=== PATIENT | female | born 1950 | race Caucasian/White ===

== ENCOUNTER 2020-07-30 13:37 | Observation (INO) ==
[2020-07-30] MEDS ORDERED: Aspirin 81 MG TAB.CHEW PO ONE (13:56)
[2020-07-30] MEDS: Nitroglycerin 0.4 MG TAB.SUBL SL PRN ×3 (14:30→14:40)
[2020-07-30 14:49] LABS: Basophils # 0.1 K/mcL (0.0-0.2); Basophils % 0.7 %; Hematocrit 41.5 % (35.3-44.9); Hemoglobin 13.8 g/dL (11.5-15.4); Immature Granulocytes % 0.2 % (0-4); Lymphocytes # 1.7 K/mcL (0.6-4.6); Lymphocytes % 18.6 %; Mean Corpuscular HGB Conc 33.3 g/dL (31.6-35.5); Mean Corpuscular Hemoglobin 29.9 pg (28.0-33.3); Mean Corpuscular Volume 89.8 fL (83.0-100.0); Monocytes # 0.7 K/mcL (0.0-1.3); Monocytes % 7.5 %; Neutrophils # 6.8 K/mcL (1.6-8.9); Platelet Count 272 K/mcL (140-400); Red Blood Count 4.62 M/mcL (3.82-4.97); Red Cell Distribution Width 13.9 % (11.5-14.5); White Blood Count 9.3 K/mcL (4.3-11.1)
[2020-07-30] MEDS ORDERED: Isovue-370 500 ML BOTTLE IVP ONE (15:11)
[2020-07-30 15:14] LABS: BUN/Creatinine Ratio 24 (6-26); Blood Urea Nitrogen 18 mg/dL (8-23); Calcium 9.4 mg/dL (8.6-10.3); Carbon Dioxide 29 mEq/L (23-29); Chloride 102 mEq/L (98-107); Glucose 87 mg/dL (70-105); Osmolality,Calculated 291 (280-300); Sodium 140 mEq/L (136-145); Troponin I < 0.03 ng/mL (< 0.04); eGFR For African Americans > 60 (> 60); eGFR For Non-African Americans > 60 (> 60)
[2020-07-30] MEDS ORDERED: Ondansetron ODT 4 MG TAB.RAPDIS SL PRN (17:12)
[2020-07-30] MEDS ORDERED: Acetaminophen 325 MG TABLET PO PRN (17:12)
[2020-07-30 19:16] LABS: Chol/HDL Ratio 3.9 (0-4.9); Cholesterol 185 mg/dL (< 200); HDL Cholesterol 47 mg/dL (40-59); LDL Cholesterol,Calculated 90 mg/dL (< 100); Triglycerides 241 mg/dL (< 150)
[2020-07-30] MEDS ORDERED: traZODone 50 MG TABLET PO PRN (23:06)
[2020-07-31 01:07] LABS: Hematocrit 37.6 % (35.3-44.9); Hemoglobin 12.5 g/dL (11.5-15.4); Mean Corpuscular HGB Conc 33.2 g/dL (31.6-35.5); Mean Corpuscular Hemoglobin 29.5 pg (28.0-33.3); Mean Corpuscular Volume 88.7 fL (83.0-100.0); Mean Platelet Volume 9.7 fL (9.4-12.4); Platelet Count 246 K/mcL (140-400); Red Blood Count 4.24 M/mcL (3.82-4.97); White Blood Count 8.4 K/mcL (4.3-11.1)
[2020-07-31 01:56] LABS: BUN/Creatinine Ratio 26 (6-26); Blood Urea Nitrogen 23 mg/dL (8-23); Carbon Dioxide 27 mEq/L (23-29); Chloride 103 mEq/L (98-107); Glucose 94 mg/dL (70-105); Osmolality,Calculated 289 (280-300); Potassium 3.6 mEq/L (3.5-5.1); Sodium 138 mEq/L (136-145); eGFR For African Americans > 60 (> 60); eGFR For Non-African Americans > 60 (> 60)
[2020-07-31] MEDS ORDERED: Regadenoson 0.4 MG/5 ML SYRINGE IVP ONE (06:26)
[2020-07-31] MEDS ORDERED: Aspirin 81 MG TAB.CHEW PO SCH (09:00)
[2020-07-31 10:55] VITALS: BP 147/83
[2020-07-31] MEDS ORDERED: predniSONE 20 MG TABLET PO ONE (11:23)
[2020-07-31] MEDS ORDERED: Ketorolac 30 MG/ML VIAL IVP ONE (11:25)
== END 2020-07-31 14:52 | disposition home or self-care (01) ==
LOC: EMEROOARM 13:37 → 3BNU 13:37
PROVIDERS: ADMIT Internal Medicine; ATTEND Internal Medicine